=== PATIENT | male | born 1990 | race Hispanic/Latino ===

== ENCOUNTER 2018-08-09 08:41 | Emergency (ER) | payer SELFPAY ==
[2018-08-09] MEDS ORDERED: Ondansetron ODT 4 MG TAB ONE (09:28)
--- NOTE | 2018-08-12 11:58 | EKG ---
Test Reason : Blood Pressure : / mmHG Vent. Rate : 095 BPM Atrial Rate : 095 BPM P-R Int : 136 ms QRS Dur : 090 ms QT Int : 358 ms P-R-T Axes : 028 -38 043 degrees QTc Int : 449 ms Normal sinus rhythm Left axis deviation Abnormal ECG Confirmed by AARTI MCGHEE, MARIPOSA ([id number]), metropolitan editor KI WRIGHT ([id number]) on 08/12/2018 11:57:37 AM Referred By: Confirmed By:MARIPOSA BROUSSARD MD
== END 2018-08-09 10:10 | disposition home or self-care (01) ==
LOC: ERS 08:41
DX: R11.2 Nausea with vomiting, unspecified (principal); T50.995A Adverse effect of other drugs, medicaments and biological substances, initial encounter
CPT/HCPCS: 36416; 93005; Q0162